=== PATIENT | male | born 1945 | race American Indian/Alaskan Native ===

== ENCOUNTER 2018-01-14 13:21 | Outpatient (CLI) | payer BC, MEDICARE ==
--- NOTE | 2018-01-16 18:28 | Magnetic Resonance Report ---
MR angiogram was performed of the intracranial circulation 3-D [id number] spoiled grass images were obtained of the intracranial circulation. The images of the carotid arteries showed no areas of occlusion or aneurysmal dilatation. The vertebral basilar system was not seen on the rotational images but was seen on the framing and hanging images. Impression: Normal MR angiogram of the intracranial circulation. the vertebral basilar system was not adequately seen.
--- NOTE | 2018-01-16 18:38 | Magnetic Resonance Report ---
MR angiography is performed of the great vessels of the neck 2-D time of flight spoiled grass images were obtained of the great vessels of the neck. Images of the carotid circulation showed both carotids to be patent without any evidence of occlusive disease. The vertebral arteries showed a diminutive left vertebral while the right vertebral was not seen. Review of component images did not show a right vertebral Impression: Abnormal MR angiography of the cervical circulation. a. no right vertebral artery is seen b. diminutive left vertebral
--- NOTE | 2018-01-16 18:50 | Magnetic Resonance Report ---
MR scan of the cranium was performed without contrast. Pulse sequences included: 1. T1 weighted sagittal and axial images without contrast 2. T2 weighted axial and coronal images 3. FLAIR axial images 4. Diffusion-weighted axial images 5. Apparent diffusion coefficient images 6. gradient echo axial images Views of the posterior fossa showed a normal craniocervical junction. Cerebellar pontine angles were normal with normal seventh-eighth nerve complexes. Brainstem showed white matter changes in the basis pontis consistent with araiosis. Cerebellum was normal. The ventricular system showed no dilatation or distortion. Images of the hemispheres showed an area of increased signal on DWI images in the right contreras radiata adjacent near the putamen. There were numerous areas of increased signal in the basal ganglia bilaterally. White matter araiosis was also seen in the contreras radiate. Sinuses, orbits, pituitary and basal ganglia were normal. Flow voids of the basilar artery were well seen with the artery being patent. Impression: Abnormal mr scan of the cranium Acute right coronal radiata infarct Patent basilar artery Multiple basal ganglia infarcts I suspect the poor visualization of the vertebrals on the mra's were artifactual. CT angiography may better elucidate the status of the vertebral arteries.
== END 2018-01-14 13:22 | disposition home or self-care (01) ==
LOC: SPVIMAG 13:21
PROVIDERS: ATTEND Specialist
DX: I63.9 Cerebral infarction, unspecified (principal); G45.9 Transient cerebral ischemic attack, unspecified; R93.0 Abnormal findings on diagnostic imaging of skull and head, not elsewhere classified
CPT/HCPCS: 70544; 70547; 70551

== ENCOUNTER 2018-02-11 11:11 | Outpatient (CLI) | payer BC, MEDICARE ==
[2018-02-11] MEDS ORDERED: NACL ONE (11:41)
--- NOTE | 2018-02-11 17:39 | Cat Scan Report ---
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 Axial thin-section images with sagittal and coronal reconstructions. 3D renderings also obtained. PRIORS: None. FINDINGS: The right vertebral artery appears small which is probably a congenital finding. However, there is also a segment of smooth long narrowing that involves the distal cervical and proximal intracranial right vertebral artery over a approximate 2-3 cm distance. There is a focal atherosclerotic calcification in the right proximal cervical vertebral artery. The artery is not occluded. The left vertebral artery appears normal in size throughout. The bilateral internal carotid arteries appear normal and patent. The bilateral anterior and middle cerebral arteries and the [place] appear normal. The bilateral posterior cerebral arteries appear normal. No aneurysms or significant stenoses are demonstrated. The cleaning/white matter attenuation pattern is normal. There is no mass lesion or mass effect. There are no abnormal extra-axial fluid collections. The skull base and visualized orbits appear normal. The visualized paranasal sinuses are clear. There are no areas of abnormal enhancement. IMPRESSION: 1. 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 No evidence of occlusion. 2. Otherwise, normal CTA of the head
== END 2018-02-11 11:12 | disposition home or self-care (01) ==
LOC: CT 11:11
PROVIDERS: ATTEND Specialist
DX: I63.30 Cerebral infarction due to thrombosis of unspecified cerebral artery (principal); I67.2 Cerebral atherosclerosis; G45.9 Transient cerebral ischemic attack, unspecified
CPT/HCPCS: 70496; Q9967

== ENCOUNTER 2020-11-21 14:04 | Outpatient (CLI) | payer BC, MEDICARE ==
--- NOTE | 2020-11-21 15:35 | XRay Report ---
Abdominal series with chest x-ray one view INDICATION / CLINICAL INFORMATION: AB PAIN. COMPARISON: None available. FINDINGS: TUBES / LINES: None. BOWEL GAS PATTERN: There is moderate to large fecal matter throughout the colon. No evidence for dila giorgio bowel or fluid levels. FREE AIR / EXTRALUMINAL GAS: None seen. AP CHEST: Single view of the chest is within normal limits. IMPRESSION: Constipation Signer Name: Brian Ramirez Jr, MD Signed: 11/21/2020 3:30 PM Workstation Name: [id number]
== END 2020-11-21 14:05 | disposition home or self-care (01) ==
LOC: XRAY 14:04
DX: K59.00 Constipation, unspecified (principal)
CPT/HCPCS: 74022